=== PATIENT | female | born 1995 | race Caucasian/White ===

== ENCOUNTER → 2016-09-04 | Outpatient (CLI) | payer BC, OTHER ==
--- NOTE | 2016-09-04 12:34 | DI ---
US BRST U/L OR B/L,09/04/2016 11:45 AM: Clinical History: Left breast mass. Previous Exam: None at this facility. Findings: Physical examination reveals a palpable mass within the left breast on the 1:00 axis approximately 5 cm from the nipple. Sonographic evaluation revealed a reniform hypoechoic predominantly homogeneous m ass with increased through transmission just deep to the overlying skin. This mass measured 3.0 x 1.5 cm. Impression: 3.0 x 1.5 cm hypoechoic solid mass within the left upper breast. Recommend followup imaging for furth er evaluation. BI-RADS: 4: Suspicious abnormality - biopsy should be considered. Jimmy Stiles was notified of th e above findings on September 04, 2016 Overall imaging assessment: Suspicious.
== END ==
LOC: US 11:02
PROVIDERS: ATTEND Obstetrics & Gynecology
DX: N63 Unspecified lump in breast (principal)
CPT/HCPCS: 76641

== ENCOUNTER → 2016-09-11 | Outpatient (CLI) | payer BC, OTHER ==
--- NOTE | 2016-09-11 11:46 | DI ---
US BRST NDLE CORE BX-US GUIDE,09/11/2016 9:48 AM: Clinical History: Homogeneous left breast mass Previous Exam: None at this facility. Procedure: Risks, benefits and alternatives were explained to the patient and informed written consen t obtained. The left breast was prepped and draped in the usual sterile fashion and 1% lidocaine used for local a nesthesia. A small skin incision was made with an 11 blade scalpel. 2 passes were made with a 14-gauge biopsy needle. Tissue was obtained and placed in formalin. The patient tolerated the procedure well and was sent home in good condition. Findings: 2 images are obtained demonstrating a hyperechoic needle within the hypoechoic mass. Impression: Successful left breast mass biopsy.
== END ==
LOC: US 09:44
PROVIDERS: ATTEND Obstetrics & Gynecology
DX: N63 Unspecified lump in breast (principal)
CPT/HCPCS: 19083